=== PATIENT | female | born 1995 | race African-American/Black ===

== ENCOUNTER 2019-06-20 12:20 | Inpatient (IN) ==
[2019-06-20] MEDS ORDERED: BUTORPHANOL 2 MG/ML VIAL IV PRN (13:14)
[2019-06-20] MEDS ORDERED: ONDANSETRON 4 MG/2 ML VIAL IV PRN ×2 (13:14→17:18)
[2019-06-20] MEDS ORDERED: MEPERIDINE 50 MG/1 ML VIAL IV PRN (13:14)
[2019-06-20] MEDS ORDERED: LACTATED RINGERS 1,000 ML IV SCH (13:30)
[2019-06-20 13:37] LABS: Basophils % 0.2 % (0.0-0.8); Eosinophils # 0.1 10*3/uL (0.0-0.87); Eosinophils % 0.9 % (0.00-10.9); Hematocrit 30.6 VOL% (35.7-47.0); Hemoglobin 9.4 GM/DL (12.0-16.0); Immature Granulocytes % 0.9 %; Immature Granulocytes Absolute 0.09 #; Lymphocytes # 1.8 10*3/uL (1.4-4.0); Lymphocytes % 17.8 % (21.3-54.2); Mean Corpuscular HGB Conc 30.7 GM/DL (32-36); Mean Corpuscular Volume 88.7 FL (87-102); Mean Platelet Volume 10.6 FL (9.6-12.0); Monocytes % 7.2 % (1.7-12.7); Platelet Count 290 T/CUMM (130-400); Red Blood Count 3.45 MC/CUMM (3.8-5.5); Red Cell Distribution Width 15.9 % (9.3-17.3)
[2019-06-20 13:59] LABS: Albumin 2.4 G/DL (3.4-5.0); Bilirubin,Total 0.6 MG/DL (0.2-1.0); Calcium 8.5 MG/DL (8.5-10.1); Osmolality,Calculated 269.8 MOS/KG (273-304); Total Protein 6.5 G/DL (6.4-8.3)
[2019-06-20] MEDS ORDERED: LIDOCAINE 1% 50 ML VIAL ONE (14:04)
[2019-06-20] MEDS ORDERED: miSOPROStoL 200 MCG TABLET ONE (14:05)
[2019-06-20 14:50] LABS: Cord Arterial Blood HCO3 20.8 MMOL/L
[2019-06-20] MEDS ORDERED: IBUPROFEN 800 MG TABLET PO ONE (14:52)
[2019-06-20 14:53] LABS: Cord Venous Blood HCO3 24.2 MMOL/L; Cord Venous Blood PCO2 39.9 MMHG; Cord Venous Blood PO2 34.5
[2019-06-20] MEDS: OXYTOCIN/LR 20 UNIT/1,000 ML BAG IV SCH ×2 (16:05→16:06)
[2019-06-20] MEDS ORDERED: DIPH/TET/ACEL PERT BOOSTER VACCINE 0.5 ML VIAL IM ONE (17:18)
[2019-06-20] MEDS ORDERED: RHO(D) IMMUNE GLOBULIN 300 MCG SYRINGE IM ONE (17:18)
[2019-06-20] MEDS ORDERED: MEASLES/MUMPS/RUBELLA VACCINE 0.5 ML VIAL SUBCUT ONE (17:18)
[2019-06-20] MEDS ORDERED: BENZOCAINE 20%/MENTHOL 0.5% SPRAY 56 GM CAN TOP PRN (17:18)
[2019-06-20] MEDS ORDERED: BISACODYL 10 MG SUPP RECTAL PRN (17:18)
[2019-06-20] MEDS ORDERED: oxyCODONE/ACETAMINOPHEN 5-325 MG TABLET PO PRN ×2 (17:18)
[2019-06-20] MEDS ORDERED: OXYTOCIN/LR 20 UNIT/1,000 ML BAG IV ONE (17:18)
[2019-06-20] MEDS ORDERED: ACETAMINOPHEN 325 MG TABLET PO PRN (17:18)
[2019-06-20] MEDS ORDERED: HYDROCORTISONE 2.5% RECTAL CREAM 30 GM TUBE TOP PRN (17:18)
[2019-06-20] MEDS ORDERED: WITCH HAZEL PADS 100/JAR TOP PRN (17:18)
[2019-06-20] MEDS ORDERED: LANOLIN 50% CREAM 0.3 OZ TUBE TOP PRN (17:18)
[2019-06-20] MEDS: DOCUSATE SODIUM 100 MG CAPSULE PO SCH (22:45)
[2019-06-20] MEDS: FERROUS SULFATE 325 MG TABLET PO SCH (22:46)
[2019-06-21 05:47] LABS: Basophils % 0.3 % (0.0-0.8); Eosinophils # 0.1 10*3/uL (0.0-0.87); Eosinophils % 0.9 % (0.00-10.9); Hematocrit 30.8 VOL% (35.7-47.0); Hemoglobin 9.5 GM/DL (12.0-16.0); Immature Granulocytes % 0.7 %; Immature Granulocytes Absolute 0.08 #; Lymphocytes # 2.5 10*3/uL (1.4-4.0); Lymphocytes % 21.2 % (21.3-54.2); Mean Corpuscular HGB Conc 30.8 GM/DL (32-36); Mean Corpuscular Volume 88.3 FL (87-102); Mean Platelet Volume 10.5 FL (9.6-12.0); Monocytes % 8.2 % (1.7-12.7); Neutrophils % 68.7 % (38.7-73.9); Platelet Count 272 T/CUMM (130-400); Red Blood Count 3.49 MC/CUMM (3.8-5.5); Red Cell Distribution Width 15.9 % (9.3-17.3); White Blood Count 11.7 T/CUMM (4-12)
[2019-06-21] MEDS: IBUPROFEN 800 MG TABLET PO PRN ×2 (06:34→15:16)
[2019-06-21] MEDS: FERROUS SULFATE 325 MG TABLET PO SCH ×2 (09:55→21:42)
[2019-06-21] MEDS: DOCUSATE SODIUM 100 MG CAPSULE PO SCH ×2 (09:55→21:42)
[2019-06-22 07:25] VITALS: BP 117/71
[2019-06-22] MEDS: FERROUS SULFATE 325 MG TABLET PO SCH (08:51)
[2019-06-22] MEDS: DOCUSATE SODIUM 100 MG CAPSULE PO SCH (08:51)
== END 2019-06-22 13:35 | disposition home or self-care (01) | DRG 560 ==
LOC: N.LDOUT 12:20 → N.LD 12:25 → N.OB 17:08
PROVIDERS: ADMIT Obstetrics & Gynecology; ATTEND Obstetrics & Gynecology